=== PATIENT | female | born 1935 | race Caucasian/White ===

== ENCOUNTER 2024-01-06 12:58 | Outpatient (OUT) | payer MEDICARE, SELFPAY ==
--- NOTE | 2024-01-06 13:00 | RT_ITS ---
The [facility] Test Date: 2024-01-06 Pat Name: YONG AVALOS Department: Room: - Gender: Female Lock Tender: Shandra Cordero, BUNDLER : 1935 Requested By: Forrest Goodwin Order Number: [id number] Reading MD: Forrest Goodwin Interpretive Statements Pulmonary function testing was completed according to ATS criteria. Findings were considered accurate and reproducible. No bronchodilator was administered due to normal spirometric values. Spirometry: -FEV1/FVC: Normal @ 86% -FEV1: Normal @ 115% -FVC: Normal @ 98% Lung volumes by plethysmography: -RV: Normal @ 101% -TLC: Normal @ 100% Diffusion capacity: -DLCO: Mild reduction @ 76% when corrected for Hb 12.8g/dL Flow-volume loop: -Normal shape Impressions: -Normal spirometry and lung volumes with an isolated mildly reduced diffusion capacity. This pattern can be seen in, but not restricted to, cardiopulmonary vascular disorders, early interstitial lung disease, and early emphysema. Clinical correlation required. Electronically Signed On 01-11-2024 17:30:30 EDT by Forrest Goodwin
[2024-01-06 13:17] LABS: Hemoglobin 12.8 g/dL (12.0-16.0)
--- NOTE | 2024-01-06 14:08 | XR_ITS ---
The [address] [address] Patient Name: YONG AVALOS MRN: [id number] date: 1935 Sex: F Assigned Patient Location: CARD Current Patient Location: Accession/Order Number: [id number] Exam Date: 01/06/2024 14:16 Report Date: 01/07/2024 14:33 At the request of: AYAN HERNANDEZ Procedure: XR chest 2V EXAM: XR chest 2V HISTORY: Shortness Of Breath COMPARISON: Chest radiograph dated 01/26/2014. TECHNIQUE: PA and lateral views of the chest performed. FINDINGS: The trachea is midline. Stable mild prominence of the cardiac silhouette. The mediastinal silhouette and hilar shadows are within normal limits. There is epicardial fat at the left cardiac angle. There is no consolidation, pleural effusion or pulmonary vascular congestion. There is no pneumothorax. The bony structures are osteopenic. 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 XR/XR chest 2V IMPRESSION: There is no acute cardiopulmonary process. Electronically authenticated by: SHAYY PARRA Date: 01/07/2024 14:33
== END 2024-01-06 12:59 | disposition home or self-care (01) ==
LOC: CARD 13:03
PROVIDERS: PCP Family Medicine; Visit Provider Internal Medicine
DX: R06.02 Shortness of breath (principal)
CPT/HCPCS: 36415; 71046; 85018; 94010; 94726; 94729